=== PATIENT | female | born 1940 | race Caucasian/White ===

== ENCOUNTER 2018-12-13 21:34 | Observation (INO) | payer MEDICARE, BC ==
[2018-12-13] MEDS ORDERED: 0.9 % SODIUM CHLORIDE 1000ML 1,000 ML IV ONE (22:09)
--- NOTE | 2018-12-13 22:15 | Emergency Department Record ---
History of Present Illness - General Chief complaint: Nausea, Vomiting, Diarrhea Stated complaint: [place] Time Seen by Provider: 12/13/18 22:07 Source: Patient Mode of Arrival: Wheelchair Limitations: No limitations - History of Present Illness Initial comments: 78 yo female presents to ED for evaluation following an epsidoe of nausea, vomiting, and loose stools x 1 this evening, reports that her symptoms have resolved and that she now feels back to baseline. Patient reports abdominal cramping symptoms that have resolved, denies fever, cough, or urinary symptoms. MD complaint: Abdominal pain, Nausea, Vomiting Onset/Timin -: Hour(s) Associated Abdominal Pain: Yes Location: LLQ, RLQ Severity scale (1-10): 1 Quality: Aching, Cramping Consistency: Constant Improves with: None Worsens with: Bowel movement Associated Symptoms: Diaphoresis, Nausea/vomiting - Related Data Home Medications Medication Instructions Recorded Confirmed Last Taken Calcium Carbonate/Vitamin D3 1 each PO DAILY 12/13/18 12/13/18 Unknown [Calcium 600 + Vit D Tablet] Cholecalciferol (Vitamin D3) 2,000 unit PO DAILY 12/13/18 12/13/18 Unknown [Vitamin D3] Pnv No.95/Ferrous Fum/Folic AC 1 each PO DAILY 12/13/18 12/13/18 Unknown [ Formula] Allergies Allergy/AdvReac Type Severity Reaction Status Date / Time morphine Allergy Severe CHEST PAIN Verified 03/03/16 14:34 gabapentin AdvReac Intermediate MUSCLE PAIN Verified 03/03/16 14:34 Travel Screening - Travel/Exposure Within Last 30 Days Have you traveled within the last 30 days?: No - Travel Symptoms Symptom Screening: None Review of Systems Constitutional: Reports: Chills. Denies: Fever, Malaise Eyes: Denies: Eye discharge, Eye pain ENT: Denies: Congestion, Ear pain, Epistaxis Respiratory: Denies: Cough, Dyspnea Cardiovascular: Denies: Chest pain, Dyspnea on exertion Endocrine: Denies: Fatigue, Heat or cold intolerance Gastrointestinal: Reports: Abdominal pain, Diarrhea, Nausea, Vomiting. Denies: Constipation Genitourinary: Denies: Incontinence, Retention Musculoskeletal: Denies: Arthralgia, Back pain, Gout, Joint swelling Skin: Denies: Bruising, Change in color Neurological: Denies: Abnormal gait, Confusion, Headache, Seizure Psychiatric: Denies: Anxiety Hematological/Lymphatic: Denies: Anemia, Blood Clots Past Medical History - SOCIAL HISTORY Smoking Status: Never smoker - RESPIRATORY Hx Respiratory Disorders: Yes Hx Sleep Apnea: Yes Hx of CPAP: Yes Comment:: occass allergies - CARDIOVASCULAR Hx Cardio Disorders: Yes Hx Chest Pain: Yes (occass. had work up 09/09 negative for heart) Hx Hypertension: Yes (on meds good control) Hx Palpitations: Yes Hx Vascular Disease: Yes (varicose veins) Comment:: uses cane when out and about - NEURO Hx Neuro Disorders: Yes Comment:: slight tremor in hands - GI Hx GI Disorders: Yes Hx Abdominal Pain: Yes (with certain foods) Hx Reflux: Yes Hx of Polyps: Yes (benign) Comment:: constipation - Hx Genitourinary Disorders: Yes Hx Renal Disease: Yes (50 percent function) - ENDOCRINE Hx Endocrine Disorders: Yes - MUSCULOSKELETAL Hx Musculoskeletal Disorders: Yes Comment:: Injections in back 2016 - PSYCH Hx Psych Problems: Yes Hx Anxiety: Yes Hx Depression: Yes - HEMATOLOGY/ONCOLOGY Hx Hematology/Oncology Disorders: Yes Hx Anemia: Yes Hx Bruising: Yes (bruises easily) Family Medical History Any Significant Family History?: Yes Hx Diabetes: Brother/Sister *Stroke Comment: Father and Grandfather of abd. aneurysms Physical Exam - General General Appearance: Alert, Oriented x3, Cooperative, No acute distress Limitations: No limitations - Head Head exam: Atraumatic, Normocephalic, Normal inspection Head exam detail: negative: Abrasion, Contusion, Momin's sign, General tenderness, Hematoma, Laceration - Eye Eye exam: Normal appearance. negative: Conjunctival injection, Periorbital swelling, Periorbital tenderness, Scleral icterus - ENT Ear exam: negative: Auricular hematoma, Auricular trauma Nasal Exam: negative: Active bleeding, Discharge, Dried blood, Foreign body Mouth exam: negative: Drooling, Laceration, Muffled voice, Tongue elevation - Neck Neck exam: Normal inspection. negative: Meningismus, Tenderness - Respiratory Respiratory exam: Normal lung sounds bilaterally. negative: Rales, Respiratory distress, Rhonchi, Stridor - Cardiovascular Cardiovascular Exam: Regular rate, Normal rhythm, Normal heart sounds - GI/Abdominal GI/Abdominal exam: Soft. negative: Rebound, Rigid, Tenderness - Rectal Rectal exam: Deferred - exam: Deferred - Extremities Extremities exam: Normal inspection, Full ROM, Tenderness. negative: Pedal edema - Back Back exam: Denies: CVA tenderness (R), CVA tenderness (L) - Neurological Neurological exam: Alert, Normal gait, Oriented X3 - Psychiatric Psychiatric exam: Normal affect, Normal mood - Skin Skin exam: Normal color. negative: Abrasion Type of lesion: negative: abrasion Course Vital Signs 12/13/18 21:46 Temperature 97.7 F Pulse Rate 74 Respiratory 20 Rate Blood Pressure 127/48 Pulse Ox 96 - Reevaluation(s) Reevaluation #1: 12/13/18 22:51 CT Abdomen and Pelvis: No acute process Post-surgical changes Diverticulosis Laboratory studies were reviewed: WBC 8.4 with 83% neutrophils BUN 98 (baseline 50's) Creatinine 1.8 (1.4 baseline) UA pending at this time. Will admit for IVF resuscitation and repeat labs in AM. Reevaluation #2: 12/14/18 06:52 Case was discussed with Dr. Medrano, will accept admission at this time. Medical Decision Making - Lab Data Result diagrams: 12/13/18 22:28 12/13/18 22:28 Disposition Disposition: Admit Clinical Impression: DOYLE (acute kidney injury) Diarrhea Qualifiers: Diarrhea type: unspecified type Qualified Code(s): R19.7 - Diarrhea, unspecified Disposition: Still a Patient at [facility] Decision to Admit: Admit from ER Decision to Admit Date: 12/13/18 Decision to Admit Time: 22:59 Condition: (2) Stable Time of Disposition: 22:59 Quality - Quality Measures Quality Measures: N/A - Blood Pressure Screening Does Patient Have Any of the Following: Active Dx of HTN Blood Pressure Classification: Normal BP Reading Systolic Measurement: 104 Diastolic Measurement: 55 Screening for High Blood Pressure: Patient Exclusion, Hx of HTN [[id number]]
[2018-12-13 22:34] LABS: HEMATOCRIT 38.2 % (35.0-47.0); MEAN CELL VOLUME 91.4 fl (81-97); MEAN CORPUSCULAR HEMOGLOBIN 28.7 pg (27-33); MEAN CORPUSCULAR HGB CONC 31.4 g/dl (32-36); MEAN PLATELET VOLUME 11.6 fl (7.4-10.4); PLATELET COUNT 152 K/uL (130-400); RED BLOOD COUNT 4.18 M/uL (3.80-5.40); RED CELL DISTRIBUTION WIDTH 13.9 % (11.5-14.5); WHITE BLOOD COUNT W/O DIFF 8.4 K/uL (4.2-12.2)
[2018-12-13 22:42] LABS: BILIRUBIN,TOTAL 0.2 mg/dL (0.2-1.0); CREATININE 1.8 mg/dL (0.5-0.9)
[2018-12-13 22:43] LABS: TOTAL PROTEIN 7.2 g/dL (6.6-8.7)
[2018-12-13 22:47] LABS: ALB/GLOB RATIO 1.3 (1.1-1.8)
[2018-12-13] MEDS ORDERED: ACETAMINOPHEN 500 MG TABLET PO PRN (23:42)
[2018-12-14 02:22] LABS: URINE APPEARANCE CLEAR; URINE BILIRUBIN NEGATIVE (NEGATIVE); URINE BLOOD NEGATIVE (NEGATIVE); URINE COLOR YELLOW; URINE GLUCOSE (UA) NEGATIVE (NEGATIVE); URINE KETONE NEGATIVE (NEGATIVE); URINE NITRITE NEGATIVE (NEGATIVE); URINE PROTEIN NEGATIVE (NEGATIVE); URINE UROBILINOGEN 0.2 E.U./dL (0.20 - 1.00)
[2018-12-14 02:30] LABS: URINE LEUKOCYTE ESTERASE NEGATIVE (NEGATIVE)
[2018-12-14] MEDS: 0.9 % SODIUM CHLORIDE 1000ML 1,000 ML IV PRN ×2 (05:22→13:25)
[2018-12-14 06:51] LABS: CREATININE 1.5 mg/dL (0.5-0.9)
--- NOTE | 2018-12-14 07:29 | CT SCAN REPORT ---
EXAM: CT OF THE ABDOMEN AND PELVIS WITHOUT CONTRAST HISTORY: ABDOMINAL PAIN, NAUSEA, VOMITING. PATIENT HAS A HISTORY OF PREVIOUS CHOLECYSTECTOMY, APPENDECTOMY AND HERNIA REPAIR. TECHNIQUE: Noncontrast CT of the abdomen and pelvis was obtained. Comparison: CT of the chest, abdomen and pelvis 09/16/14. FINDINGS: Small calcified granuloma in the left lower lobe. Unremarkable CT appearance of the liver, adrenal glands, and pancreas. Numerous small calcified granulomata within the spleen. No hydronephrosis. No intrarenal calculi detected. No focal colonic thickening or inflammatory change. Sigmoid colon diverticulosis without evidence of acute diverticulitis. The small bowel is nondilated. The gallbladder is surgically absent. No free air or free fluid in the abdomen or pelvis. Similar appearance of ventral abdominal wall hernia repair mesh since 2013 comparison. Unremarkable appearance of the urinary bladder. The abdominal aorta is calcified and tortuous. No evidence of aneurysmal dilatation. No definite acute osseous findings. Degenerative changes in the lumbar spine. IMPRESSION: 1. NO ACUTE FINDINGS IN THE ABDOMEN OR PELVIS. 2. SIGMOID COLON DIVERTICULOSIS WITHOUT EVIDENCE OF ACUTE DIVERTICULITIS. 3. POST SURGICAL CHANGES INCLUDING VENTRAL ABDOMINAL WALL HERNIA REPAIR MESH AND CHOLECYSTECTOMY. JOB NUMBER: [id number] [facility]
[2018-12-14] MEDS ORDERED: ASPIRIN 81 MG CHEWABLE TABLET PO SCH (10:00)
[2018-12-14] MEDS ORDERED: SERTRALINE HCL 50 MG TABLET PO SCH (10:00)
[2018-12-14] MEDS ORDERED: ACETAMINOPHEN 500 MG TABLET PO SCH ×2 (10:30→22:00)
[2018-12-14 12:19] LABS: CREATININE 1.4 mg/dL (0.5-0.9)
--- NOTE | 2018-12-14 12:27 | History & Physical ---
History of Present Illness - Date of Service Date of Service for History & Physical: 12/14/18 - History of Present Illness Admitting Diagnosis: Acute kidney injury. Dehydration. Diarrhea History of Present Illness: PMHx: HLD, HTN, NANNETTE ED COURSE: Pt states that last night she ate dinner and a few minutes later she felt chills and cramping in her abdomen. Shortly after she had large volume explosive diarrhea and one episode of vomiting. She went to the ER because she felt like "she was gonna pass out and didn't feel right." No blood in stool or vomit, has noticed bright red blood only on wiping for the last week, but she is usually constipated and has a BM every 3 days. While on the toilet she has to "push hard" and massage the stool down her abdomen. Vitals: T 97.7, P 74, RR20, BP 127/48, O2 96% on RA Pertinent labs: BUN 98, Cr 1.8 (baseline 1.3), CBC and UA wnl. Imaging: CT abd/pelvis negative for acute abnormality. Admitted for DOYLE and rehydration. HOSPITAL COURSE: - lasix was held overnight and pt was rehydrated with IVF. - She states that she is feeling much better, only has mild cramping in her abdomen. - No more episodes of diarrhea or vomiting overnight. Travel Screening - Travel/Exposure Within Last 30 Days Have you traveled within the last 30 days?: No - Travel/Exposure Within Last Year Have you traveled outside the [place] in the last year?: No - Additonal Travel Details Have you been exposed to anyone with a communicable illness?: No - Travel Symptoms Symptom Screening: None Review of Systems Constitutional: Reports: Chills. Denies: Fever, Malaise, Weakness Eyes: Denies: Eye discharge, Eye pain, Vision change ENT: Denies: Congestion, Ear pain, Epistaxis Respiratory: Denies: Cough, Dyspnea, Wheezes Cardiovascular: Denies: Chest pain, Dyspnea on exertion Endocrine: Denies: Fatigue, Heat or cold intolerance Gastrointestinal: Reports: Other (blood upon wiping). Denies: Abdominal pain, Constipation, Diarrhea, Nausea, Vomiting Genitourinary: Denies: Incontinence, Retention Musculoskeletal: Reports: Neck pain (mild). Denies: Arthralgia, Back pain, Gout , Joint swelling Skin: Denies: Bruising, Change in color, Rash Neurological: Denies: Abnormal gait, Confusion, Headache, Seizure, Weakness Psychiatric: Denies: Anxiety Hematological/Lymphatic: Denies: Anemia, Blood Clots Past Medical History - SOCIAL HISTORY Smoking Status: Never smoker - RESPIRATORY Hx Respiratory Disorders: Yes Hx Sleep Apnea: Yes Hx of CPAP: Yes Comment:: occass allergies - CARDIOVASCULAR Hx Cardio Disorders: Yes Hx Chest Pain: Yes (occass. had work up 09/09 negative for heart) Hx Hypertension: Yes (on meds good control) Hx Palpitations: Yes Hx Vascular Disease: Yes (varicose veins) Comment:: uses cane when out and about - NEURO Hx Neuro Disorders: Yes Comment:: slight tremor in hands - GI Hx GI Disorders: Yes Hx Abdominal Pain: Yes (with certain foods) Hx Reflux: Yes Hx of Polyps: Yes (benign) Comment:: constipation - Hx Genitourinary Disorders: Yes Hx Renal Disease: Yes (50 percent function) - ENDOCRINE Hx Endocrine Disorders: Yes - MUSCULOSKELETAL Hx Musculoskeletal Disorders: Yes Comment:: Injections in back 2016 - PSYCH Hx Psych Problems: Yes Hx Anxiety: Yes Hx Depression: Yes - HEMATOLOGY/ONCOLOGY Hx Hematology/Oncology Disorders: Yes Hx Anemia: Yes Hx Bruising: Yes (bruises easily) Family Medical History Any Significant Family History?: Yes Hx Diabetes: Brother/Sister *Stroke Comment: Father and Grandfather of abd. aneurysms H&P Meds/Allergies - Allergies Allergies: Allergies Allergy/AdvReac Type Severity Reaction Status Date / Time morphine Allergy Severe CHEST PAIN Verified 03/03/16 14:34 gabapentin AdvReac Intermediate MUSCLE PAIN Verified 03/03/16 14:34 - Home Medications Home Medications Medication Instructions Recorded Confirmed Last Taken Calcium Carbonate/Vitamin D3 1 each PO DAILY 12/13/18 12/13/18 Unknown [Calcium 600 + Vit D Tablet] Cholecalciferol (Vitamin D3) 2,000 unit PO DAILY 12/13/18 12/13/18 Unknown [Vitamin D3] Pnv No.95/Ferrous Fum/Folic AC 1 each PO DAILY 12/13/18 12/13/18 Unknown [ Formula] Acetaminophen [Pain Relief Extra 500 mg PO QHS 12/14/18 12/14/18 Unknown Strength] - Active Medications Active Medications: Current Medications Acetaminophen (Tylenol 500mg Tab) 1,000 mg PO DAILY [facility] Last Admin: 12/14/18 10:59 Dose: 1,000 mg Acetaminophen (Tylenol 500mg Tab) 500 mg PO QHS [facility] Aspirin (Aspirin Chewable) 81 mg PO DAILY [facility] Last Admin: 12/14/18 11:00 Dose: 81 mg Sodium Chloride () 1,000 mls @ 125 mls/hr IV .Q8H PRN PRN Reason: LARGE VOLUME IV Last Admin: 12/14/18 05:22 Dose: 125 mls/hr Lisinopril (Zestril) 10 mg PO QHS [facility] Simvastatin (Zocor) 40 mg PO QHS [facility] Physical Exam - Vital Signs Vital Signs: Vital Signs - Last 24 Hrs Temp Pulse Pulse Resp BP BP Pulse Ox 12/14/18 08:35 72 18 12/14/18 07:39 98.2 F 72 18 109/50 97 12/14/18 00:10 20 12/13/18 23:42 97.9 F 82 16 160/59 97 12/13/18 23:37 70 18 104/55 95 12/13/18 21:46 97.7 F 74 20 127/48 96 - General General Appearance: Alert, Oriented x3, Cooperative, No acute distress Limitations: No limitations - Head Head exam: Atraumatic, Normocephalic, Normal inspection Head exam detail: negative: Abrasion, Contusion, Momin's sign, General tenderness, Hematoma, Laceration - Eye Eye exam: Normal appearance, PERRL, EOMI. negative: Conjunctival injection, Periorbital swelling, Periorbital tenderness, Scleral icterus - ENT ENT exam: Normal exam, Mucous membranes moist, Normal external ear exam, Normal orophraynx Ear exam: Normal external inspection. negative: Auricular hematoma, Auricular trauma Nasal Exam: Normal inspection. negative: Active bleeding, Discharge, Dried blood, Foreign body Mouth exam: Normal external inspection. negative: Drooling, Laceration, Muffled voice, Tongue elevation Throat exam: Normal inspection - Neck Neck exam: Normal inspection, Full ROM - Respiratory Respiratory exam: Normal lung sounds bilaterally. negative: Rales, Respiratory distress, Rhonchi, Stridor - Cardiovascular Cardiovascular Exam: Regular rate, Normal rhythm, Normal heart sounds - GI/Abdominal GI/Abdominal exam: Soft, Normal bowel sounds, Tenderness (RUQ mild on palpation) . negative: Rebound, Rigid - Rectal Rectal exam: Deferred - exam: Deferred - Extremities Extremities exam: Full ROM, Tenderness. negative: Normal inspection ( varicosities present on both feet and legs b/l), Pedal edema - Back Back exam: Denies: CVA tenderness (R), CVA tenderness (L) - Neurological Neurological exam: Alert, Oriented X3 - Psychiatric Psychiatric exam: Normal affect, Normal mood - Skin Skin exam: Normal color (except varicose veins on LE's). negative: Abrasion Type of lesion: negative: abrasion Results - Labs Result Diagrams: 12/13/18 22:28 12/14/18 06:08 Labs Last 24 Hours: Laboratory Results - last 24 hr 12/13/18 12/13/18 12/13/18 02:19 22:28 22:28 WBC 8.4 RBC 4.18 Hgb 12.0 Hct 38.2 MCV 91.4 MCH 28.7 MCHC 31.4 L RDW 13.9 Plt Count 152 MPV 11.6 H Neutrophils % 83.0 H Band Neutrophils % 0.0 Eosinophils % Not Reportable Basophils % Not Reportable Lymphocytes 7.0 L Monocytes 10.0 H Basophils 0.0 Eosinophil Count 0.0 Sodium 140 Potassium 4.7 H Chloride 101 Carbon Dioxide 26.0 Anion Gap 13.0 BUN 98 H Creatinine 1.8 H Estimated GFR 29 Random Glucose 171 H Calcium 9.2 Total Bilirubin 0.20 AST 10 ALT 11 Alkaline Phosphatase 75 Total Protein 7.2 Albumin 4.0 Globulin 3.2 Albumin/Globulin Ratio 1.3 Urine Color Yellow Urine Appearance Clear Urine pH 5.5 Ur Specific Bledsoe 1.020 Urine Protein Negative Urine Glucose (UA) Negative Urine Ketones Negative Urine Blood Negative Urine Nitrite Negative Urine Bilirubin Negative Urine Urobilinogen 0.2 Ur Leukocyte Esterase Negative 12/14/18 06:08 WBC RBC Hgb Hct MCV MCH MCHC RDW Plt Count MPV Neutrophils % Band Neutrophils % Eosinophils % Basophils % Lymphocytes Monocytes Basophils Eosinophil Count Sodium 141 Potassium 4.4 Chloride 105 Carbon Dioxide 25.0 Anion Gap 11.0 BUN 93 H Creatinine 1.5 H Estimated GFR 36 Random Glucose 116 H Calcium 8.4 L Total Bilirubin AST ALT Alkaline Phosphatase Total Protein Albumin Globulin Albumin/Globulin Ratio Urine Color Urine Appearance Urine pH Ur Specific Bledsoe Urine Protein Urine Glucose (UA) Urine Ketones Urine Blood Urine Nitrite Urine Bilirubin Urine Urobilinogen Ur Leukocyte Esterase VTE H&P Assessment - Risk for VTE Risk for VTE: Yes Risk Level: High Risk Assessment Date: 12/14/18 Risk Assessment Time: 12:33 VTE Orders Placed or Will Be Placed: No VTE Reason for No Prophylaxis: Not Indicated (pt will be discharged in less than 24 hours of admission) Plan - Detailed Diagnosis and Plan (1) DOYLE (acute kidney injury) Current Visit: Yes Status: Acute Base Code: N17.9 - ACUTE KIDNEY FAILURE, UNSPECIFIED Priority: High Comment: - IVF given overnight. - Cr down from 1.8 -> 1.4 (baseline around 1.3) - BUN trending down. - Symptoms of dehydration resolved. Diarrhea and vomiting resolved. - Hold lasix until seeing primary care provider outpt. - Disposition Home.
--- NOTE | 2018-12-14 13:27 | Physician Addendum ---
Addendum (Physician) Went in to check on pt again and was doing physical again prior to D/C. Noticed that the pt has irregular sounding heartbeat. Will obtain EKG. Pt states that she doesn't know if she has a history of a-fib or not. She states that sometimes she can feel her heart beating irregularly when taking her BP.
--- NOTE | 2018-12-14 14:10 | Discharge Summary ---
Providers Discharge Summary Date: 12/14/18 Date of admission: 12/13/18 23:35 Expected Date of Discharge: 12/14/18 Attending physician: SUDHA BOYLE M.D. Primary care physician: LYNETTE VIDAL M.D. Physical Exam - Vital Signs Vital Signs: Vital Signs - Last 24 Hrs Temp Pulse Pulse Resp BP BP Pulse Ox 12/14/18 08:35 72 18 12/14/18 07:39 98.2 F 72 18 109/50 97 12/14/18 00:10 20 12/13/18 23:42 97.9 F 82 16 160/59 97 12/13/18 23:37 70 18 104/55 95 12/13/18 21:46 97.7 F 74 20 127/48 96 - General General Appearance: Alert, Oriented x3, Cooperative, No acute distress Limitations: No limitations - Head Head exam: Atraumatic, Normocephalic, Normal inspection Head exam detail: negative: Abrasion, Contusion, Momin's sign, General tenderness, Hematoma, Laceration - Eye Eye exam: Normal appearance, PERRL, EOMI. negative: Conjunctival injection, Periorbital swelling, Periorbital tenderness, Scleral icterus - ENT ENT exam: Normal exam, Mucous membranes moist, Normal external ear exam, Normal orophraynx Ear exam: Normal external inspection. negative: Auricular hematoma, Auricular trauma Nasal Exam: Normal inspection. negative: Active bleeding, Discharge, Dried blood, Foreign body Mouth exam: Normal external inspection. negative: Drooling, Laceration, Muffled voice, Tongue elevation Throat exam: Normal inspection - Neck Neck exam: Normal inspection, Full ROM - Respiratory Respiratory exam: Normal lung sounds bilaterally. negative: Rales, Respiratory distress, Rhonchi, Stridor - Cardiovascular Cardiovascular Exam: Regular rate, Normal heart sounds, Irregular rhythm. negative: Normal rhythm - GI/Abdominal GI/Abdominal exam: Soft, Normal bowel sounds, Tenderness (RUQ mild on palpation) . negative: Rebound, Rigid - Rectal Rectal exam: Deferred - exam: Deferred - Extremities Extremities exam: Full ROM, Tenderness. negative: Normal inspection ( varicosities present on both feet and legs b/l), Pedal edema - Back Back exam: Denies: CVA tenderness (R), CVA tenderness (L) - Neurological Neurological exam: Alert, Oriented X3 - Psychiatric Psychiatric exam: Normal affect, Normal mood - Skin Skin exam: Normal color (except varicose veins on LE's). negative: Abrasion Type of lesion: negative: abrasion Hospitalization - Hospitalization Admission Diagnosis: Acute kidney injury. Dehydration. Diarrhea - Problem List/Discharge Diagnosis (1) DOYLE (acute kidney injury) Current Visit: Yes Status: Acute Base Code: N17.9 - ACUTE KIDNEY FAILURE, UNSPECIFIED Comment: - IVF given overnight. - Cr down from 1.8 -> 1.4 (baseline around 1.3) - BUN trending down. - Symptoms of dehydration resolved. Diarrhea and vomiting resolved. - Hold lasix until seeing primary care provider outpt. - Disposition Home. - Hospitalization Course Hospital Course: PMHx: HLD, HTN, NANNETTE ED COURSE: Pt states that last night she ate dinner and a few minutes later she felt chills and cramping in her abdomen. Shortly after she had large volume explosive diarrhea and one episode of vomiting. She went to the ER because she felt like "she was gonna pass out and didn't feel right." No blood in stool or vomit, has noticed bright red blood only on wiping for the last week, but she is usually constipated and has a BM every 3 days. While on the toilet she has to "push hard" and massage the stool down her abdomen. Vitals: T 97.7, P 74, RR20, BP 127/48, O2 96% on RA Pertinent labs: BUN 98, Cr 1.8 (baseline 1.3), CBC and UA wnl. Imaging: CT abd/pelvis negative for acute abnormality. Admitted for DOYLE and rehydration. HOSPITAL COURSE: - lasix was held overnight and pt was rehydrated with IVF. - She states that she is feeling much better, only has mild cramping in her abdomen. - No more episodes of diarrhea or vomiting overnight. - Heart sounded irregular on exam and EKG was done and found PAC's. No evidence of a-fib. - Pt was discharged in good condition. Procedures: Imaging and X-Rays 12/13/18 22:11 ABDOMEN/PELVIS WO CONTRAST [CT] Stat Cardiology Procedures 12/14/18 13:38 EKG NOW Abnormal Labs: Abnormal Lab Results 12/13/18 12/13/18 12/14/18 Range/Units 22:28 22:28 06:08 MCHC 31.4 L (32-36) g/dl MPV 11.6 H (7.4-10.4) fl Neutrophils % 83.0 H (47-80) % Lymphocytes 7.0 L (16-45) % Monocytes 10.0 H (0-9) % Potassium 4.7 H (3.4-4.5) mmol/L BUN 98 H 93 H (8-23) mg/dL Creatinine 1.8 H 1.5 H (0.5-0.9) mg/dL Random Glucose 171 H 116 H (74-109) mg/dL Calcium 8.4 L (8.8-10.2) mg/dL 12/14/18 Range/Units 12:03 MCHC (32-36) g/dl MPV (7.4-10.4) fl Neutrophils % (47-80) % Lymphocytes (16-45) % Monocytes (0-9) % Potassium (3.4-4.5) mmol/L BUN 83 H (8-23) mg/dL Creatinine 1.4 H (0.5-0.9) mg/dL Random Glucose 122 H (74-109) mg/dL Calcium 8.6 L (8.8-10.2) mg/dL Condition at Discharge: (1) Good VTE Discharge VTE Reason For No Overlap Therapy: Not Indicated Discharge Medications - Discharge Medications Home Medications: Ambulatory Orders Acetaminophen [Tylenol 500Mg Tab] 1,000 mg PO DAILY 09/16/14 [Last Taken Unknown ] Acetaminophen with Codeine [Acetaminophen-Cod #3 Tablet] 1 tab PO QHS 09/16/14 [ Last Taken Unknown] Aspirin Chewable 81 mg PO DAILY 09/16/14 [Last Taken Unknown] Lisinopril 10 mg PO QHS 09/16/14 [Last Taken 09/16/14] [place]-3 Fatty Acids/Fish Oil [Fish Oil 1,000 mg Softgel] 3 each PO DAILY [Last Taken Unknown] Simvastatin 40 mg PO QHS 09/16/14 [Last Taken Unknown] Calcium Carbonate/Vitamin D3 [Calcium 600 + Vit D Tablet] 1 each PO DAILY [Last Taken Unknown] Cholecalciferol (Vitamin D3) [Vitamin D3] 2,000 unit PO DAILY 12/13/18 [Last Taken Unknown] Pnv No.95/Ferrous Fum/Folic AC [ Formula Tablet] 1 each PO DAILY [Last Taken Unknown] Acetaminophen [Pain Relief Extra Strength] 500 mg PO QHS 12/14/18 [Last Taken Unknown] Discharge Plan - Discharge Instructions Activity at Discharge: Increase Activity as Tolerated Diet at Discharge: Advance to Usual Diet Instructions: Premature Atrial Contractions (GEN) Additional Instructions: Do not take your lasix until you see your PCP. Get a repeat kidney function test when you see your PCP next week. Continue to hydrate. Quality Measures - Quality Measures Quality Measures: Advance Directives, Documentation of Current Medications in Medical Record, Elder Maltreatment Screen and Follow-Up Plan, Screening for High Blood Pressure and F/U Documented - Current Medications Quality Measure: Measure #130: Documentation of Current Medications Documentation of Current Medications: <Current Medications Documented/Reviewed> [G8427] - Blood Pressure Screening Quality Measure: Screening for High Blood Pressure and Follow-Up Documented Does Patient Have Any of the Following: Active Dx of HTN Blood Pressure Classification: Normal BP Reading Systolic Measurement: 104 Diastolic Measurement: 55 Screening for High Blood Pressure: Patient Exclusion, Hx of HTN [G9744] - Advance Directives Quality Measure: Measure #47: Care Plan Advance Directives Established: Yes Advance Directives Information Provided To Patient: No Advance Directives on File: No Living Will: Yes Power of Organic Chemist: No Advance Care Planning: <Care Plan/Decision Maker Documented; Discussed & Documented> [1123F] - Elder Abuse Suspicion Index Screening: Elder Abuse Suspicion Index Screening Rely on people for bathing, dressing, shopping, banking, etc: No Prevented from getting food, clothes, medication, etc: No Made to feel shamed or threatened by someone: No Forced to sign papers or use money against will: No Feel afraid, touched in ways not wanted or hurt physically: No Poor eye contact, withdrawn, malnourished, cuts or bruises: No Screening Result: Negative result EASI Reference Information: Alyssa CASSIDY, Giovany C, Ellen D, Jillian Otoole.Development and validation of a tool to assist physicians identification of elder abuse: The Elder Abuse Suspicion Index (EASI ). Journal of Elder Abuse and Neglect, 2008; 20 (3): 276-300. - Elder Maltreatment Screen Quality Measures: Elder Maltreatment Screen and Follow-Up Plan Elder Maltreatment Screen: <Negative, No Follow-Up Plan Required> [Q8144]
[2018-12-14] MEDS ORDERED: LISINOPRIL 10 MG TABLET PO SCH (22:00)
[2018-12-14] MEDS ORDERED: SIMVASTATIN 20 MG TABLET PO SCH (22:00)
== END 2018-12-14 14:40 | disposition home or self-care (01) ==
LOC: ER 21:34 → MEDSURG 23:35
PROVIDERS: ADMIT Family Medicine; ATTEND Family Medicine
DX: N17.9 Acute kidney failure, unspecified (principal); E86.0 Dehydration; R19.7 Diarrhea, unspecified; R68.83 Chills (without fever); I10 Essential (primary) hypertension; E11.9 Type 2 diabetes mellitus without complications; E78.5 Hyperlipidemia, unspecified; D64.9 Anemia, unspecified; N28.9 Disorder of kidney and ureter, unspecified; G47.33 Obstructive sleep apnea (adult) (pediatric); Z90.49 Acquired absence of other specified parts of digestive tract
CPT/HCPCS: 80048; 80053; 81003; 85027; 74176; 93005; G0378 ×2; 96360; 99220; 99285

== ENCOUNTER 2019-06-01 14:42 | Emergency (ER) | payer MEDICARE, BC ==
--- NOTE | 2019-06-01 14:58 | Emergency Department Record ---
History of Present Illness - General Chief Complaint: Back Pain/Injury Stated Complaint: BACK AND LEG PAIN Time Seen by Provider: 06/01/19 14:57 Source: Patient Mode of Arrival: Ambulatory Limitations: No limitations - History of Present Illness Initial Comments: 78 yo male presents with back pain since February 27. The pain is in the low back and radiates down. Initially in February it radiated down both legs. She saw Dr Deal March 06 and March 29. The pain has continued. She is getting in home therapy. Over the last 1-2 weeks the pain now is down the left leg. No weakness, numbness, tingling. No bowel or bladder changes. No incontinence. The pain is sharp and goes down the outside of the left leg. No imaging to date since February. The patient is getting outpatient physical therapy but not happy with the progress. MD Complaint: Back pain -: Month(s) (3) Similar Symptoms Previously: Yes Place: Home Radiation: Left leg (Down the side) Severity: Moderate Quality: Sharp Consistency: Constant Improves With: Other (Rest) Worsens With: Walking, Other (Movement) Associated Symptoms: Denies other symptoms - Related Data Previous Rx's Medication Instructions Recorded Cyclobenzaprine HCl [Flexeril] 10 mg PO TID #20 tablet 06/01/19 Hydrocodone/Acetaminophen [[place] 1 each PO Q6H #12 tablet 06/01/19 7.5-325 Tablet] Methylprednisolone [Medrol Dose 0 mg PO UD #1 tab.ds.pk 06/01/19 Pack] Allergies Allergy/AdvReac Type Severity Reaction Status Date / Time morphine Allergy Severe CHEST PAIN Verified 03/03/16 14:34 gabapentin AdvReac Intermediate MUSCLE PAIN Verified 03/03/16 14:34 Review of Systems Constitutional: Denies: Chills, Fever, Malaise, Weakness Eyes: Denies: Eye discharge ENT: Denies: Congestion, Throat pain Respiratory: Denies: Cough Cardiovascular: Denies: Chest pain, Syncope Endocrine: Denies: Fatigue Gastrointestinal: Denies: Abdominal pain, Diarrhea, Nausea, Vomiting Genitourinary: Denies: Dysuria, Urgency Musculoskeletal: Reports: Back pain, Myalgia. Denies: Arthralgia, Joint swelling Skin: Denies: Bruising, Change in color, Rash Neurological: Denies: Headache, Numbness, Paresthesias, Tingling, Tremors, Vertigo, Weakness Psychiatric: Denies: Anxiety Hematological/Lymphatic: Denies: Easy bleeding, Easy bruising Past Medical History - SOCIAL HISTORY Smoking Status: Never smoker - RESPIRATORY Hx Respiratory Disorders: Yes Hx Sleep Apnea: Yes Hx of CPAP: Yes Comment:: occass allergies - CARDIOVASCULAR Hx Cardio Disorders: Yes Hx Chest Pain: Yes (occass. had work up 09/09 negative for heart) Hx Hypertension: Yes (on meds good control) Hx Palpitations: Yes Hx Vascular Disease: Yes (varicose veins) Comment:: uses cane when out and about - NEURO Hx Neuro Disorders: Yes Comment:: slight tremor in hands - GI Hx GI Disorders: Yes Hx Abdominal Pain: Yes (with certain foods) Hx Reflux: Yes Hx of Polyps: Yes (benign) Comment:: constipation - Hx Genitourinary Disorders: Yes Hx Renal Disease: Yes (50 percent function) - ENDOCRINE Hx Endocrine Disorders: Yes - MUSCULOSKELETAL Hx Musculoskeletal Disorders: Yes Comment:: Injections in back 2016 - PSYCH Hx Psych Problems: Yes Hx Anxiety: Yes Hx Depression: Yes - HEMATOLOGY/ONCOLOGY Hx Hematology/Oncology Disorders: Yes Hx Anemia: Yes Hx Bruising: Yes (bruises easily) Family Medical History Hx Diabetes: Brother/Sister *Stroke Comment: Father and Grandfather of abd. aneurysms Physical Exam - General General Appearance: Alert, Oriented x3, Cooperative, No acute distress Limitations: No limitations - Head Head exam: Atraumatic, Normal inspection - Eye Eye exam: Normal appearance, PERRL. negative: Conjunctival injection, Scleral icterus - ENT ENT exam: Normal exam, Mucous membranes moist Ear exam: Normal external inspection Nasal Exam: Normal inspection Mouth exam: Normal external inspection - Neck Neck exam: Normal inspection - Respiratory Respiratory exam: Normal lung sounds bilaterally. negative: Respiratory d istress - Cardiovascular Cardiovascular Exam: Regular rate, Normal rhythm, Normal heart sounds Peripheral Pulses: 2+: Radial (R), Radial (L), Dorsalis Pedis (L) - GI/Abdominal GI/Abdominal exam: Soft. negative: Tenderness - Rectal Rectal exam: Deferred - exam: Deferred - Extremities Extremities exam: Normal inspection, Normal capillary refill, Other (Pain in the lower back with leg raise). negative: Calf tenderness, Joint swelling, Pedal edema, Tenderness Image of Full Body: 1 - tenderness to palpation - Neurological Neurological exam: Alert, Motor sensory deficit, Oriented X3. negative: Altered - Psychiatric Psychiatric exam: Normal affect, Normal mood - Skin Skin exam: Dry, Intact, Normal color, Warm Course - Reevaluation(s) Reevaluation #1: 06/01/19 16:03 Lumbar MRI 06/11/16: Multilevel degenerative discs, central canal stenosis L3-4-5-S1. Possible small paracentral disc with mild mass effect on L2, L5 nerve root compression L5. 06/01/19 17:25 The labs were reviewed No acute changes from her baseline (CKD) 06/01/19 18:03 The XR demonstrated minor end plate compression fracture of L3 since November. With her history of pain starting on February 27 this may corresponds to the onset She has pain with ROM but neurologically intact. I recommended she discuss outpatient MRI or pain specialist consult since the findings are new in 2019 Limited amount of pain medication provided 06/01/19 18:49 Medical Decision Making - Lab Data Result diagrams: 06/01/19 16:58 06/01/19 16:58 Disposition Disposition: Discharge Clinical Impression: Sciatica, Compression fracture of L3 vertebra Disposition: Home, Self-Care Condition: (1) Good Instructions: Vertebral Compression Fracture (ED), Sciatica (ED) Additional Instructions: Call your doctor Monday for close follow up With the new small compression fracture from November I recommend outpatient MRI to further help find out where your pain is coming from Return or be seen if your pain worsens, is uncontrolled, weakness, changes in your bladder or bowel function or any new concerns Prescriptions: Cyclobenzaprine HCl [Flexeril] 10 mg PO TID #20 tablet Methylprednisolone [Medrol Dose Pack] 0 mg PO UD #1 tab.ds.pk Hydrocodone/Acetaminophen [[place] 7.5-325 Tablet] 1 each PO Q6H #12 tablet Forms: Patient Portal Access Time of Disposition: 18:52 Quality - Quality Measures Quality Measures: N/A - Blood Pressure Screening Does Patient Have Any of the Following: Active Dx of HTN Blood Pressure Classification: Pre-Hypertensive BP Reading Systolic Measurement: 132 Diastolic Measurement: 70 Screening for High Blood Pressure: Patient Exclusion, Hx of HTN [G9744]
[2019-06-01] MEDS ORDERED: ACETAMINOPHEN 1,000 MG/100 ML BTL IVPB ONE (16:01)
[2019-06-01] MEDS ORDERED: CYCLOBENZAPRINE 10MG TABLET PO ONE (16:01)
[2019-06-01] MEDS ORDERED: METHYLPREDNISOLONE PF 125MG/VIAL IVP ONE (16:05)
[2019-06-01 17:05] LABS: ABSOLUTE NEUTROPHIL COUNT 3.35; BASO % 0.2 % (0-6); GRAN % 59.9 % (47-80); HEMATOCRIT 37.2 % (35.0-47.0); HEMOGLOBIN 11.4 gm/dl (11.6-16.0); LYMPH % 31.3 % (16-45); MEAN CELL VOLUME 92.8 fl (81-97); MEAN CORPUSCULAR HEMOGLOBIN 28.4 pg (27-33); MEAN CORPUSCULAR HGB CONC 30.6 g/dl (32-36); MEAN PLATELET VOLUME 10.9 fl (7.4-10.4); MONO % 6.6 % (0-9); PLATELET COUNT 141 K/uL (130-400); RED BLOOD COUNT 4.01 M/uL (3.80-5.40); WHITE BLOOD COUNT W/O DIFF 5.6 K/uL (4.2-12.2)
[2019-06-01 17:12] LABS: CREATININE 1.3 mg/dL (0.5-0.9)
[2019-06-01 17:16] LABS: PARTIAL THROMBOPLASTIN TIME 27.1 SECONDS (24.5-39.1); PROTHROMBIN TIME (PATIENT) 10.1 SECONDS (9.5-12.1)
--- NOTE | 2019-06-04 09:02 | RADIOLOGY REPORT ---
EXAM: LUMBAR SPINE SERIES HISTORY: LOW BACK PAIN WITH RADIATION DOWN THE LEFT LEG. INCREASING SYMPTOMS. NO KNOWN INJURY. TECHNIQUE: Six views of the lumbar spine were obtained. Comparison: Previous CT scan of the abdomen and pelvis dated 12/13/18. Previous lumbar spine x-rays dated 06/02/16. FINDINGS: There are view lumbar vertebral segments. There is very minor levoconvex curvature. There is slight compression of the superior end plate of L3 which appears new from the previous CT study. There is mild anterolisthesis of L5 on S1 secondary to bilateral facet arthropathy. This is unchanged. Disk space narrowing and end plate degenerative changes are present and are greatest at the L1-L2 and L5-S1 levels. Facet arthropathy is present throughout. The sacroiliac joints demonstrate mild arthritic changes. The bony pelvis is intact. Mesh hernia repair is noted within the abdominal wall. Surgical clips are present within the right upper quadrant. IMPRESSION: 1. MINOR COMPRESSION OF THE SUPERIOR END PLATE OF L3 WHICH IS NEW FROM THE 12/13/18 EXAMINATION. 2. MULTILEVEL DEGENERATIVE DISK DISEASE AND FACET ARTHROPATHY DETAILED ABOVE. 3. 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 JOB NUMBER: [id number] MTDD
== END 2019-06-01 18:30 | disposition home or self-care (01) ==
LOC: ER 14:42
DX: M48.56XG Collapsed vertebra, not elsewhere classified, lumbar region, subsequent encounter for fracture with delayed healing (principal); M54.42 Lumbago with sciatica, left side; I10 Essential (primary) hypertension
CPT/HCPCS: 72110; 80048; 85025; 85610; 85730; 96365; 96375; 99284; J2930